=== PATIENT | female | born 2000 | race Two or more races ===

== ENCOUNTER 2024-09-21 17:23 | Emergency (ER) | payer OTHER ==
[2024-09-21 17:36] VITALS: BP 122/76; PULSE 84; RESP 18; TEMP 98.4; BMI 21.9
[2024-09-21 18:30] LABS: URINE APPEARANCE CLEAR; URINE BILIRUBIN NEGATIVE (NEGATIVE); URINE COLOR YELLOW; URINE GLUCOSE (UA) NEGATIVE (NEGATIVE); URINE KETONE NEGATIVE (NEGATIVE); URINE LEUK ESTERASE NEGATIVE (NEGATIVE); URINE NITRITE NEGATIVE (NEGATIVE); URINE PROTEIN NEGATIVE (NEGATIVE)
[2024-09-21 18:41] LABS: HCG,QUALITATIVE URINE Negative
== END 2024-09-21 18:49 | disposition left against medical advice (07) ==
LOC: JERFT 17:23 → JER 17:23 → JERFT 18:49
DX: R10.30 Lower abdominal pain, unspecified (principal)
CPT/HCPCS: 81003; 84703; 87086; 99283-25